=== PATIENT | male | born 1990 | race Caucasian/White ===

== ENCOUNTER 2020-11-15 17:40 | Emergency (ER) | payer OTHER, MEDICAID ==
[2020-11-15] MEDS ORDERED: Morphine 4 MG/ML Syringe ONE ×3 (17:57→18:00)
[2020-11-15] MEDS ORDERED: Ondansetron 4 MG/2 ML SDV ONE ×2 (17:59→18:00)
[2020-11-15] MEDS ORDERED: Lidocaine 1% 50 ML MDV ONE (18:00)
[2020-11-15] MEDS ORDERED: [UNRECOGNIZED DRUG - OTHER] ONE (18:00)
[2020-11-15] MEDS ORDERED: CEFAZOLIN ONE (18:00)
[2020-11-15] MEDS ORDERED: Tetracaine HCl/PF 0.5% 4 ML Bottle ONE (18:00)
[2020-11-15] MEDS ORDERED: fentaNYL 50 MCG/ML SDV ONE (18:00)
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
--- NOTE | 2020-11-15 19:44 | PCM.PRNOTE ---
- Free Text/Narrative Note: Anes Note I was called to ER to perform emergency intubation. Pre 02 2 x 3 minutes with ambu bag. !00 mg anectine plus 20 mg etomidate given at 193. Intubated with ease using glidescope. Cervical collar in place to provide neck stabilization. Cords were clear. BBS checked and equal. 7.5 ET tube secrued at 23 cm at teeth by RT. Nelson well. VS stable during and after intubation. Time with patient [id number] Josué Shelton [employer] SET UP OPERATOR
[2020-11-16 02:52] LABS: BLOOD UREA NITROGEN,BUN 13 mg/dL (7.0-18.0); CARBON DIOXIDE,CO2 20.5 mmol/L (21.0-32.0); CHLORIDE,CL 103 mmol/L (98-107); GLUCOSE RANDOM 157 mg/dL (74-106); LIPASE 174 U/L (73-393); POTASSIUM,K 2.9 mmol/L (3.5-5.1); SODIUM,NA 140 mmol/L (136-148)
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
--- NOTE | 2020-11-16 06:42 | CR ---
Indication: Chest tube Technique: Chest 1 view Comparison: 11/15/2020 at 5:50 p.m. Findings/Impression: Cardiovascular and mediastinum: Stable cardiomediastinal silhouette. Lungs and pleural space: Interval placement of a right chest tube with the tip in the medial apex. No significant residual right pneumothorax seen. A small caliber tube/catheter again projecting over the right upper chest. Ill-defined right pulmonary opacities again noted compatible with pulmonary contusions. Bones and soft tissues: Small right chest wall emphysema. Dictated by Hardy Blanco MD @ Nov 16 2020 6:36AM Signed by Dr. Hardy Blanco @ Nov 16 2020 6:40AM
--- NOTE | 2020-11-16 06:44 | CR ---
Indication: Chest tube adjustment Technique: Chest 1 view Comparison: 11/15/2020 at 7:07 a.m. Findings/Impression: An endotracheal tube with the tip approximately 6.5 cm above the pam. A right chest tube again seen with the tip in the medial right apical region, similar to the prior. Small ill-defined right pulmonary opacities again seen compatible with pulmonary contusions. No gross pleural effusions. Stable cardiomediastinal silhouette. Small right chest wall emphysema again seen. Dictated by Hardy Blanco MD @ Nov 16 2020 6:40AM Signed by Dr. Hardy Blanco @ Nov 16 2020 6:44AM
== END 2020-11-15 20:56 ==
LOC: MW.ED 17:40
DX: S01.81XA Laceration without foreign body of other part of head, initial encounter (principal); S61.411A Laceration without foreign body of right hand, initial encounter; S81.811A Laceration without foreign body, right lower leg, initial encounter; S30.1XXA Contusion of abdominal wall, initial encounter; S61.531A Puncture wound without foreign body of right wrist, initial encounter; S70.312A Abrasion, left thigh, initial encounter; R07.9 Chest pain, unspecified; V23.4XXA Motorcycle driver injured in collision with car, pick-up truck or van in traffic accident, initial encounter
CPT/HCPCS: 31500; 32551; 36415; 70450; 71045; 71260; 72125; 72170; 74177; 80053; 80307; 83690; 85025; 85610; 85730; 96374; 96375; 96376; 99291; G0390; J0690; J2001; J2270; J2405; J2704; J3010; 72128-26; 72131-26; 90471